=== PATIENT | male | born 1940 | race Caucasian/White ===

== ENCOUNTER → 2017-04-13 | Outpatient (CLI) | payer MEDICARE ==
[~2017-04-13] MED LIST: DARVOCET-N 1001 TAB PO; HCTZ PO; PRILOSEC PO; VERAPAMIL ER PO
--- NOTE | ~2017-04-13 | MR18 ---
[facility] A Service of [facility] / [facility] RADIOLOGY TEXT RESULTS PATIENT: JUAN BRAVO LOCATION: CMRI : 39 UNIT #: [id number] AGE: [address]: Federico Cohen MD SEX: M ORDER DR: [id number] [facility] [address] [place], [place] [address] [id number] O MR#: [id number] Acc #: [id number] NAME: JUAN BRAVO : 1940 SEX: M STUDY DATE/TIME: 04/13/2017 16:46 UNIT: [facility] ROOM: STUDY DESCRIPTION: MR Brain Wo Contrast Attending Physician: Federico Cohen M.D. Referring Physician: Federico Cohen M.D. Ordering Physician: Federico Cohen M.D. Primary Care Physician: Federico Cohen M.D. MRI CENTER REPORT This report is preliminary unless electronic signature is present. EXAM Brain MRI. HISTORY Worsening forgetfulness over the past year. TECHNIQUE Multiplanar imaging of the brain was performed including diffusion weighted images. FINDINGS On diffusion weighted imaging, there is no evidence of abnormal restricted diffusion to suggest a recent infarct. Metal artifact is seen over the right side of the head that moderately distorts the images. There is no evidence of mass lesion, hemorrhage, or edema. There are moderate chronic ischemic changes in the periventricular deep white matter bilaterally. Extraaxial structures are unremarkable. IMPRESSION Atrophy with moderate chronic ischemic changes around the ventricles. No acute findings. Dictated by... Aleksandr Hardin M.D. THIS IS AN ELECTRONICALLY VERIFIED REPORT Aleksandr Hardin M.D. at 04/14/2017 3:52 PM RLF/sera TD: 04/14/2017 10:58 JOB #: [id number] [facility] A Service of [facility] & [facility] RADIOLOGY TEXT RESULTS PATIENT: JUAN BRAVO LOCATION: CM[facility] : 39 UNIT #: [id number] AGE: [address]: Federico Cohen MD SEX: M ORDER DR: MRI CENTER REPORT Page 1 of 1 COPY
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
== END | disposition home or self-care (01) ==
LOC: CMRI 14:57
DX: R41.3 Other amnesia (principal); G93.89 Other specified disorders of brain; G31.9 Degenerative disease of nervous system, unspecified
CPT/HCPCS: 70030; 70551

== ENCOUNTER → 2017-05-09 | Outpatient (CLI) | payer MEDICARE ==
--- NOTE | ~2017-05-09 | TH ---
Unit #: [id number] #: [id number] Patient: JUAN BRAVO [id number] [address] [address] [id number] O MR#: [id number] NAME: JUAN BRAVO : 1940 SEX: M STUDY DATE/TIME: 05/09/2017 UNIT: [facility] ROOM: STUDY DESCRIPTION: EKG and Imaging Study Attending Physician: Federico Cohen M.D. Referring Physician: Federico Cohen M.D. Primary Care Physician: Federico Cohen M.D. CARDIOLOGY REPORT EXAM EKG as well as nuclear part of the test DESCRIPTION OF PROCEDURE AND FINDINGS The patient's baseline heart rate is 64 beats per minute, blood pressure 157/95. The patient received IV Lexiscan infusion as per protocol. Peak infusion heart rate 74 beats per minute, blood pressure 154/99. The patient's baseline EKG is showing sinus rhythm with normal EKG. During Lexiscan infusion and recovery no further ST and T changes. Patient also received 11.5 mCi of Cardiolite at rest and 35.7 mCi of Cardiolite during stress. Both sets of images were compared. Patient shows a very small apical defect during stress images. No other defect was noted. Patient also has gated SPECT scan done which showed normal LV size and function. No wall motion abnormality detected. Ejection fraction is 66%. INTERPRETATION OF THE TEST 1. EKG part of the test negative for Lexiscan-induced ischemia. 2. Nuclear part of the test negative for myocardial ischemia. 3. Gated SPECT scan shows normal left ventricular size and function. Dictated by... Lynsey Mar/mariela TD: 05/09/2017 18:50 JOB #: [id number] CARDIOLOGY REPORT Page 1 of 1 X Jorge Marsh MD CARDIOLOGY REPORT
== END | disposition home or self-care (01) ==
LOC: CNUC 06:31
DX: R07.9 Chest pain, unspecified (principal)
CPT/HCPCS: 78452; 93017; A9500; J2785